=== PATIENT | female | born 2000 | race Caucasian/White ===

== ENCOUNTER 2023-07-31 19:16 | Emergency (ER) | payer BC ==
[~2023-07-31 19:16] MED LIST: Iopamidol-370 76% 500 ML MDV (1 ML CHARGE) ONE
[2023-07-31] MEDS ORDERED: Ketorolac Tromethamine 30 MG (1 mL) VIAL ONE (20:49)
[2023-07-31] MEDS ORDERED: Ondansetron PF 4 MG/2 ML Vial ONE (20:49)
[2023-07-31 20:57] LABS: #Basophils Less than 0.03 10x3/uL (0.0-0.2); #Eosinphils Less than 0.03 10x3/uL (0.0-0.7); %Basophils 0.1 % (0.0-1.0); %Lymphocytes 7.9 % (21.0-51.0); %Monocytes 5.6 % (0.0-10.0); %Neutrophils 86.3 % (42.0-75.0); Hemoglobin 17.1 g/dL (12.0-16.0); Mean Corpuscular HGB CONC 35.6 g/dL (32.0-36.0); Mean Corpuscular Hemoglobin 32.1 pg (27.0-31.0); Mean Corpuscular Volume 90.2 fL (78.0-98.0); Mean Platelet Volume 10.1 fL (7.4-10.4); Platelet Count 191 10x3/uL (130-400); Red Blood Cell (RBC) Count 5.32 mill/uL (4.20-5.40)
[2023-07-31 21:04] LABS: Bacteria/HPF 1+ HPF (None Seen); Bilirubin Negative (Negative); Blood, Urine Negative (Negative); CAUTI Indications for Culture Pelvic or flank pain; Clarity Clear (Clear); Glucose, Urine (Dipstick) Normal (Negative); Ketone, Urine 100 mg/dL (Negative); Leukocyte 75 Leu/uL (Negative); Nitrite Negative (Negative); Protein, Urine (Dipstick) Negative (Neg-Trace); RBC/HPF 0-3 HPF (0-3); Specific Gravity, Urine 1.022 (1.002-1.036); Urobilinogen Normal mg/dL (Less than 2)
[2023-07-31 21:05] LABS: Urine Culture Reflex No No
[2023-07-31 21:13] LABS: BHCG - Serum Negative (NEGATIVE); Pregs Control Background? CLEAR/WHITE (CLR/WHITE); Pregs Control Bar Appear? YES (CONTROL BAR)
[2023-07-31 21:27] LABS: ALT (SGPT) 15 U/L (8-55); AST (SGOT) 20 U/L (5-34); Albumin 4.7 g/dL (3.5-5.0); Alkaline Phosphatase 82 U/L (40-110); Anion Gap 21 mmol/L (10-20); BUN (Urea Nitrogen) 13 mg/dL (7.0-18.7); Bilirubin, Total 0.9 mg/dL (0.2-1.2); Calc. Creatinine Clearance 0 mL/min (70-130); Calcium 10.1 mg/dL (7.8-10.44); Carbon Dioxide 18 mmol/L (22-29); Chloride 104 mmol/L (98-107); Estimated GFR 114; Glucose 88 mg/dL (70-105); Lipase 11 U/L (8-78); Potassium 3.8 mmol/L (3.5-5.1); Protein, Total 7.7 g/dL (6.0-8.3); Sodium 139 mmol/L (136-145)
== END 2023-07-31 22:22 | disposition home or self-care (01) ==
LOC: ERS 19:16
DX: K52.9 Noninfective gastroenteritis and colitis, unspecified (principal)
CPT/HCPCS: 74177; 80053; 81001; 83690; 84703; 85025; 87086; 96361; 96374; 96375; J1885; J2405